=== PATIENT | male | born 1945 | race Two or more races ===

== ENCOUNTER 2023-01-30 22:46 | Inpatient (IN) | payer MEDICARE, OTHER ==
[~2023-01-30] VITALS: Ht 177.8 cm; Wt 56.2 kg
--- NOTE | 2023-01-30 23:45 | NUR ---
REJI 839 FROM HOME WITH CC OF GEN WEAKNESS X2 WEEKS. PT IS AAO X 2-3 WITH PERIODS OF CONFUSION, BREATHING UNLABORED. PT ATTACHED TO MONITOR AND PULSE OX. AWAITING MD MARCUM
[2023-01-31] MEDS ORDERED: IV NS 0.9% 500 ML BAG IV ONE
--- NOTE | 2023-01-31 00:10 | NUR ---
IV LINE STARTED AT RFA 20G, BLOOD DRAWN AND SENT TO LAB
--- NOTE | 2023-01-31 00:15 | NUR ---
URINE COLLECTED, SENT TO LAB
--- NOTE | 2023-01-31 00:16 | NUR ---
PT TAKEN TO CT VIA TEOFILO
--- NOTE | 2023-01-31 00:33 | NUR ---
PT IS AAO X 4, PER PT, HE WISHES TO BE FULL CODE. HE STATES HE HAS NO KNOWN ALLERGIES, CONFIRMED BY DAUGHTER AT BEDSIDE.
--- NOTE | 2023-01-31 00:34 | NUR ---
MRSA, AND COVID SWAB COLLECTED, SENT TO LAB
[2023-01-31 00:37] LABS: BASOPHILS % (AUTO) 0.2 % (0.0-2.0); HEMATOCRIT 32 % (39-51); HEMOGLOBIN 10.4 g/dL (13.5-17.5); LYMPHOCYTES # (AUTO) 0.7 K/uL (0.8-4.8); LYMPHOCYTES % (AUTO) 8.4 % (20.0-44.0); MEAN CORPUSCULAR HGB CONC 33 g/dl (31.0-36.0); MEAN CORPUSCULAR VOLUME 93 fL (80-96); MONOCYTES # (AUTO) 0.7 K/uL (0.1-1.30); NEUTROPHILS # (AUTO) 6.8 K/uL (1.8-8.9); NEUTROPHILS % (AUTO) 82.4 % (43.0-81.0); PLATELET COUNT (AUTO) 220 K/uL (150-450); RED BLOOD CELL COUNT(AUTO) 3.41 MIL/uL (4.5-6.0); WHITE BLOOD COUNT (AUTO) 8.2 K/uL (4.3-11.0)
[2023-01-31 00:42] LABS: CALCIUM, SERUM 9.1 mg/dL (8.5-10.1); CARBON DIOXIDE 31 mmol/L (21-32); CHLORIDE 99 mmol/L (98-107); CREATININE 0.8 mg/dL (0.6-1.3); GLUCOSE 109 mg/dL (74-106); POTASSIUM 4.1 mmol/L (3.5-5.1); SODIUM SERUM 134 mmol/L (136-145); UREA NITROGEN, BLOOD 25 mg/dL (7-18)
[2023-01-31 00:48] LABS: ALANINE AMINOTRANSFERASE 121 U/L (12-78); ALBUMIN 3.2 g/dL (3.4-5.0); ALKALINE PHOSPHATASE 97 U/L (46-116); ASPARTATE AMINOTRANSFERASE 139 U/L (15-37); BILIRUBIN,DIRECT 0.1 mg/dL (0.0-0.2); BILIRUBIN,TOTAL 0.3 mg/dL (0.2-1.0); TOTAL PROTEIN, SERUM 6.6 g/dL (6.4-8.2)
[2023-01-31 00:56] LABS: BILIRUBIN,URINE NEGATIVE (NEGATIVE); COLOR,URINE YELLOW (YELLOW); LEUKOCYTE ESTERASE ,URINE NEGATIVE (NEGATIVE); NITRITE, URINE NEGATIVE (NEGATIVE); PH,URINE 6.5 (5.0-8.0); PROTEIN,URINE NEGATIVE (NEGATIVE); UGLUCOSE NEGATIVE (NEGATIVE)
[2023-01-31 00:58] LABS: BACTERIA,URINE Rare /HPF (None Seen); RBC,URINE 0-2 /HPF (0-2); SQUAMOUS EPITHELIAL CELL,UR Few /HPF (None Seen); WBC,URINE 0-2 /HPF (0-3)
[2023-01-31] MEDS ORDERED: ACETAMINOPHEN 325 MG TABLET PO PRN (02:30)
[2023-01-31] MEDS ORDERED: ONDANSETRON HCL/PF 4 MG/2 ML VIAL IVP PRN (02:30)
[2023-01-31] MEDS ORDERED: MAG HYDROX/AL HYDROX/SIMETH 30 ML UDC PO PRN (02:30)
[2023-01-31] MEDS ORDERED: MAGNESIUM HYDROXIDE 30 ML UDC PO PRN (02:30)
[2023-01-31] MEDS ORDERED: IV NS 0.9% 1,000 ML IV SCH (02:30)
[2023-01-31] MEDS ORDERED: MORPHINE SULFATE INJ 2 MG/ML DISP.SYRIN IV PRN (02:30)
[2023-01-31] MEDS ORDERED: ENOXAPARIN SODIUM 40 MG/0.4 ML DISP.SYRIN SQ ONE (04:04)
[2023-01-31] MEDS: ENOXAPARIN SODIUM 40 MG/0.4 ML DISP.SYRIN SQ SCH ×2 (04:08→21:17)
--- NOTE | 2023-01-31 08:36 | NUR ---
REPORT GIVEN TO TAYA NASSAR
--- NOTE | 2023-01-31 09:08 | NUR ---
moved to inpatient room safely per acls protocol
[2023-01-31 09:30] VITALS: BP 155/86
[2023-01-31] MEDS: IV NS 0.9% 1,000 ML IV PRN (09:47)
--- NOTE | 2023-01-31 10:02 | NUR ---
RN NOTES PT IS CONFUSED, AGITATED, TRYING TO REMOVED AGAIN HIS IV ACCESS AND TRIED SEVERAL TIMES TO GET-OUT OF BED. PT IS HIGH RISK OF FALL. HOT PLATE PLY[employer]OD PRESS OPERATOR CHEYANNE LIU MADE AWARE WITH ORDER TO PLACE PT ON BILATERAL WRIST RESTRAINTS. PT'S DAUGHTER THIERRY INFORMED.
--- NOTE | 2023-01-31 10:15 | NUR ---
MS LEAD PHP DEVELOPER NOTES PT ADMITTED TO UNIT VIA GURNEY AT 0900 WITH DIAGNOSIS OF FTT. PT IS A/O X1. VERBALLY RESPONSIVE, RESTLESS, CONFUSED AND FORGETFUL. FOLLOWS SIMPLE COMMANDS. PT ORIENTED TO STAFF AND ROOM. V/S TAKEN AND RECORDED. PT ON ROOM, TOLERATING WELL, BREATHING EVEN AND UNLABORED. PHYSICAL ASSESSMENT DONE: PHOTOS OF SKIN ISSUES TAKEN AND FILED ON HIS CHART. IV ACCESS NOTED ON SOLO #20G INTACT AND PATENT, IVF OF NS @ 75ML/HR STARTED PER MD ORDER. LUNGS CLEAR ON AUSCULTATION. ABDOMEN SOFT, NON-TENDER WITH POSITIVE BOWEL SOUNDS PRESENT. ABLE TO MOVE ALL EXTREMITIES. FALL AND ALL SAFETY PRECAUTIONS IMPLEMENTED: HOB ELEVATED, BED IN LOWEST LOCKED POSITION, SIDE-RAILS UP X3, CALL LIGHT WITHIN REACH. WILL CONTINUE TO MONITOR PT.
[2023-01-31] MEDS ORDERED: LEVO75TA7 PO (10:33)
[2023-01-31] MEDS ORDERED: METO50TA16 PO (10:33)
[2023-01-31] MEDS ORDERED: FERR325T24 PO (10:33)
[2023-01-31] MEDS ORDERED: MULT-447 PO (10:33)
[2023-01-31] MEDS ORDERED: ATOR10TA PO (10:33)
[2023-01-31] MEDS ORDERED: SODI1TAB66 PO (10:33)
[2023-01-31] MEDS ORDERED: CALC1TAB30 PO (10:35)
--- NOTE | 2023-01-31 13:34 | NUR ---
RN NOTES PT'S DAUGHTER SHOWED PT'S COVID -19 VACCINATION CARD AND PT WAS VACCINATED X2 WITH MODERNA VACCINE: 1ST DOSE 01/04/21 AND 2ND DOSE 01/27/21.
[2023-01-31 16:00] VITALS: BP 149/75
[2023-01-31] MEDS: FERROUS SULFATE (325 MG) 325 MG/TAB TABLET PO SCH (16:57)
[2023-01-31] MEDS: METOPROLOL TARTRATE 50 MG TABLET PO SCH (16:59)
--- NOTE | 2023-01-31 18:48 | NUR ---
RN MS CLOSING NOTES RECEIVED PATIENT AWAKE IN BED, PT IS A/O X1. VERBALLY RESPONSIVE, RESTLESS, CONFUSED AND FORGETFUL. FOLLOWS SIMPLE COMMANDS. ON ROOM AIR, NO S/S OF RESPIRATORY DISTRESS. PT WITH BILATERAL SOFT WRISTS RESTRAINTS IN PLACE, SKIN AND CIRCULATION WNL. IV ACCESS NOTED ON SOLO #20G INTACT AND PATENT, IVF OF NS @ 75ML/HR. ABLE TO MOVE ALL EXTREMITIES. FALL AND SAFETY PRECAUTIONS IMPLEMENTED: HOB ELEVATED, BED IN LOWEST LOCKED POSITION, SIDE-RAILS UP X3, CALL LIGHT WITHIN REACH. WILL ENDORSE TO SHORT ORDER FRY COOK NURSE FOR ALVARO..
--- NOTE | 2023-01-31 19:35 | NUR ---
MS RN OPENING NOTES RECEIVED PATIENT AWAKE IN BED. PT IS A/O X1, CONFUSED. ON ROOM AIR, BREATHING EVEN AND UNLABORED, NO SIGNS OF DISTRESS OR SOB AT THIS TIME. PT WITH BILATERAL SOFT WRISTS RESTRAINTS IN PLACE, SKIN AND CIRCULATION WNL. IV ACCESS NOTED ON SOLO #20G INTACT AND PATENT, IVF OF NS @ 75ML/HR. WILL MAINTAIN SAFETY MEASURES WITH BED IN LOWEST LOCKED POSITION. SIDE-RAILS UP X 3. CALL LIGHT WITHIN REACH. WILL CONTINUE THE PLAN OF CARE AND WILL CARRY OUT ACTIVE MD ORDERS.
[2023-01-31 20:00] VITALS: BP 149/108
[2023-02-01] MEDS: IV NS 0.9% 1,000 ML IV PRN ×2 (00:51→14:33)
[2023-02-01 05:55] LABS: BASOPHILS % (AUTO) 0.3 % (0.0-2.0); HEMATOCRIT 30 % (39-51); HEMOGLOBIN 9.8 g/dL (13.5-17.5); LYMPHOCYTES # (AUTO) 0.3 K/uL (0.8-4.8); LYMPHOCYTES % (AUTO) 2.7 % (20.0-44.0); MEAN CORPUSCULAR HGB CONC 33 g/dl (31.0-36.0); MEAN CORPUSCULAR VOLUME 93 fL (80-96); MONOCYTES # (AUTO) 0.7 K/uL (0.1-1.30); MONOCYTES % (AUTO) 6.2 % (2.0-12.0); NEUTROPHILS % (AUTO) 90.8 % (43.0-81.0); PLATELET COUNT (AUTO) 202 K/uL (150-450); RED BLOOD CELL COUNT(AUTO) 3.21 MIL/uL (4.5-6.0)
[2023-02-01 06:17] LABS: ALBUMIN 3.1 g/dL (3.4-5.0); BILIRUBIN,TOTAL 0.9 mg/dL (0.2-1.0); CALCIUM, SERUM 8.7 mg/dL (8.5-10.1); CREATININE 0.7 mg/dL (0.6-1.3); PHOSPHORUS 3.2 mg/dL (2.5-4.9); POTASSIUM 4.3 mmol/L (3.5-5.1); TOTAL PROTEIN, SERUM 6.3 g/dL (6.4-8.2)
[2023-02-01 06:28] LABS: THYROID STIMULATING HORMONE 5.414 uIU/mL (0.358-3.74)
--- NOTE | 2023-02-01 07:04 | NUR ---
MS RN CLOSING NOTES PATIENT AWAKE IN BED. PT IS A/O X1, CONFUSED. ON ROOM AIR, BREATHING EVEN AND UNLABORED, NO SIGNS OF DISTRESS OR SOB AT THIS TIME. PT WITH BILATERAL SOFT WRISTS RESTRAINTS IN PLACE, SKIN AND CIRCULATION WNL. IV ACCESS NOTED ON SOLO #20G INTACT AND PATENT, IVF OF NS @ 75ML/HR. SAFETY MEASURES MAINTAINED WITH BED IN LOWEST LOCKED POSITION. SIDE-RAILS UP X 3. CALL LIGHT WITHIN REACH. WILL ENDORSE TO THE NEXT SHIFT.
[2023-02-01] MEDS ORDERED: LEVOTHYROXINE SODIUM 75 MCG TABLET PO SCH (07:30)
--- NOTE | 2023-02-01 08:17 | NUR ---
RN OPENING NOTE RECEIVED PATIENT IN BED AO x 1 CONFUSED, ABLE TO RESPONDS PHYSICAL STIMULI. RESPIRATORY EVEN AND UNLABORED IN ROOM AIR. IN NO ACUTE RESPIRATORY DISTRESS OBSERVED. SKIN IS WARM TO TOUCH, KEEP CLEAN/DRY. KEPT ELEVATED HOB FOR ASPIRATION PRECAUTION/ENSURE AIRWAY, ALSO LOWEST BED POSITIONED. BED ALARM IS ON AT ALL THE TIME FOR SAFETY. CALL LIGHT WITHIN REACH, WILL CONTINUE TO MONITOR.
[2023-02-01 08:31] VITALS: BP 142/87
[2023-02-01] MEDS: FERROUS SULFATE (325 MG) 325 MG/TAB TABLET PO SCH ×2 (09:07→17:14)
[2023-02-01] MEDS: CALCIUM CARB 600MG /VIT D 1 EACH TABLET PO SCH (09:07)
[2023-02-01] MEDS: ATORVASTATIN 10 MG TABLET PO SCH (09:07)
[2023-02-01] MEDS: METOPROLOL TARTRATE 50 MG TABLET PO SCH ×2 (09:08→17:14)
[2023-02-01] MEDS: MULTIVIT W/MINERALS 1 TAB TABLET PO SCH (09:09)
--- NOTE | 2023-02-01 13:45 | NUR ---
THE PATIENT CONFUSED THAN YESTERDAY, NEW ORDER CT HEAD WO CONTRAST. NOTED AND CARRY OUT.
[2023-02-01 16:11] VITALS: BP 110/61
[2023-02-01] MEDS: ENSURE ENLIVE 237 ML LIQUID (VANILLA) PO SCH (17:13)
--- NOTE | 2023-02-01 18:41 | NUR ---
RN CLOSING NOTE PATIENT RESTING IN BED. IN NO ACUTE DISTRESS OBSERVED. RESPIRATORY EVEN AND UNLABORED ON OXYGEN AT 2Ls VIA NC, NO SOB OR DESATURATION NOTED. SKIN IS WARM TO TOUCH KEEP CLEAN/DRY. KEPT ELEVATED HOB FOR ENSURE AIRWAY/ASPIRATION PRECAUTION, AND LOWEST BED POSITION. BED ALARM IS ON AT ALL THE TIME FOR SAFETY. CALL LIGHT WITHIN REACH, WILL ENDORSE STEEL LAYOUT WORKER.
--- NOTE | 2023-02-01 19:23 | NUR ---
RN OPENING NOTE RECEIVED PATIENT IN BED AAOX1 CONFUSED,RAUL WELL ON RM AIR SAT 98%,NO SOB/DISTRESS NOTED,IV ACCESS ON SOLO 20G WITH NS 75ML/HR INFUSING WELL,RESTRAINED IN PLACE WITH GOOD CIRCULATION,SAFETY MEASURE IN PLACE,CALL LIGHT WITHIN REACH,WILL CONTINUE TO MONITOR.
[2023-02-01 20:00] VITALS: BP 128/72
[2023-02-01] MEDS: ENOXAPARIN SODIUM 40 MG/0.4 ML DISP.SYRIN SQ SCH (21:05)
[2023-02-02] MEDS: IV NS 0.9% 1,000 ML IV PRN (04:11)
[2023-02-02 05:55] LABS: BASOPHILS % (AUTO) 0.2 % (0.0-2.0); HEMATOCRIT 30 % (39-51); LYMPHOCYTES # (AUTO) 0.8 K/uL (0.8-4.8); LYMPHOCYTES % (AUTO) 7.4 % (20.0-44.0); MEAN CORPUSCULAR HGB CONC 33 g/dl (31.0-36.0); MEAN CORPUSCULAR VOLUME 93 fL (80-96); MONOCYTES % (AUTO) 9.1 % (2.0-12.0); NEUTROPHILS # (AUTO) 9.1 K/uL (1.8-8.9); NEUTROPHILS % (AUTO) 83.3 % (43.0-81.0); PLATELET COUNT (AUTO) 197 K/uL (150-450); WHITE BLOOD COUNT (AUTO) 10.9 K/uL (4.3-11.0)
--- NOTE | 2023-02-02 06:09 | NUR ---
RN CLOSING NOTE; PATIENT IN BED WITH EYES CLOSED BUT EASY TO AROUSED,AOX1 CONFUSED,RAUL WELL ON RM AIR SAT 97%,NO SOB/DISTRESS NOTED,NO SIGN OF PAIN/DISCOMFORT DURING SHIFT,DUE MEDS GIVEN ORDER,ALL NEEDS ATTENDED,IV ACCESS ON SOLO 20G WITH NS 75ML/HR INFUSING WELL,RESTRAINED IN PLACE RELEASED Q2HRS WITH GOOD CIRCULATION,NO REDNESS OR SWOLLEN NOTED.SAFETY MEASURE IN PLACE,CALL LIGHT WITHIN REACH,WILL ENDORSED TO NEXT SHIFT.
[2023-02-02 06:21] LABS: CALCIUM, SERUM 8.6 mg/dL (8.5-10.1); CREATININE 0.7 mg/dL (0.6-1.3); POTASSIUM 3.9 mmol/L (3.5-5.1)
[2023-02-02 07:00] VITALS: BP_SYST 127; BP_SYST 141; BP_DIAS 55; BP_DIAS 90
--- NOTE | 2023-02-02 07:26 | NUR ---
MS RN OPENING NOTE Patient in bed, asleep. A/O x 1. On room air, breathing evenly and unlabored. No SOB or s/s of distress noted. IV access on SOLO #20 infusing NS at 75 ml/hr. Bilateral soft wrist restraint noted. Safety precautions in place: bed in low, locked position; siderails up ; call light within reach. Will continue to monitor.
--- NOTE | 2023-02-02 10:04 | NUR ---
RN NOTE Been trying to wake patient for medication, patient is snoring but is not arousable to name, touch, or pain. blood glucose checked, 76. VS as follows: BP 129/74, RI 89, SPO2 97 % on room air, RR 20 and no SOB or s/s of distress noted. Patient is on IV fluids, NS at 75 ml/hr. Notified Anna Lilly NP of assessment and she ordered to change fluid to D5NS at 100ml/hr, and ordered for neuro consult. Will continue to monitor patient.
[2023-02-02] MEDS: LEVOTHYROXINE SODIUM 75 MCG TABLET PO SCH (10:12)
[2023-02-02] MEDS: CALCIUM CARB 600MG /VIT D 1 EACH TABLET PO SCH (10:12)
[2023-02-02] MEDS: ENSURE ENLIVE 237 ML LIQUID (VANILLA) PO SCH ×2 (10:12→18:10)
[2023-02-02] MEDS: ATORVASTATIN 10 MG TABLET PO SCH (10:13)
[2023-02-02] MEDS: FERROUS SULFATE (325 MG) 325 MG/TAB TABLET PO SCH ×2 (10:13→18:11)
[2023-02-02] MEDS: METOPROLOL TARTRATE 50 MG TABLET PO SCH ×2 (10:13→18:11)
[2023-02-02] MEDS: MULTIVIT W/MINERALS 1 TAB TABLET PO SCH (10:13)
[2023-02-02] MEDS: IV D5/ 0.9% NACL 1,000 ML IV PRN ×2 (10:52→21:55)
--- NOTE | 2023-02-02 11:39 | NUR ---
WOUND CARE CONSULT: PT PRESENTS WITH AREAS OF SKIN DISCOLORATION AND DEEP TISSUE INJURY TO RT UPPER BACK, PRESENT ON ADMISSION. RECOMMENDATIONS MADE FOR SKIN PROTECTION. DISCUSSED WITH NURSING STAFF. PT IS INCONTINENT. IN AGREEMENT WITH PLAN OF CARE. Addendum: 02/02/23 at 1140 by MISSY GIFFORD WNDNU Amended: Links added. Addendum: 02/02/23 at 1140 by MISSY GIFFORD WNDNU PT IS VERY THIN AND BONY. DIETARY CONSULT IN PLACE.
--- NOTE | 2023-02-02 14:45 | NUR ---
RN NOTE Patient is awake now. A/O x 1, confused. Patient kept looking for his . Patient complained of pain on his left thigh. Anna Lilly NP and Elisa CHAUDHRY notified of patient mentation. Anna CHAUDHRY ordered Xray of left femur. Will continue to monitor.
--- NOTE | 2023-02-02 16:19 | NUR ---
RN NOTE Nursing swallow eval done at bedside, patient able to tolerated pureed food.
[2023-02-02 16:24] VITALS: BP 141/97
--- NOTE | 2023-02-02 18:48 | NUR ---
MS RN CLOSING NOTE Patient in bed, resting. A/O x 1, able to make needs known. Stable on room air, breathing evenly and unlabored. No SOB or s/s of distress noted. IV access on SOOL #20 infusing D5NS at 100 ml/hr. All needs attended to. Due meds given. Condom catheter placed earlier, draining to a yellow colored urine. Safety precautions in place: bed in low, locked position; siderails up ; call light within reach. Will endorse to spa supervisor nurse for ALVARO.
--- NOTE | 2023-02-02 19:23 | NUR ---
RN OPENING NOTE RECEIVED PATIENT IN BED AAOX1 CONFUSED,RAUL WELL ON RM AIR SAT 97%,NO SOB/DISTRESS NOTED,IV ACCESS ON SOLO 20G WITH D5 NS 100ML/HR INFUSING WELL,RESTRAINED IN PLACE WITH GOOD CIRCULATION,SAFETY MEASURE IN PLACE,CALL LIGHT WITHIN REACH,WILL CONTINUE TO MONITOR.
[2023-02-02 20:00] VITALS: BP 145/76
[2023-02-02] MEDS: ENOXAPARIN SODIUM 40 MG/0.4 ML DISP.SYRIN SQ SCH (21:20)
--- NOTE | 2023-02-03 06:14 | NUR ---
N CLOSING NOTE; PATIENT IN BED WITH EYES CLOSED BUT EASY TO AROUSED,AOX1 CONFUSED,RAUL WELL ON RM AIR SAT 97%,NO SOB/DISTRESS NOTED,NO SIGN OF PAIN/DISCOMFORT DURING SHIFT,DUE MEDS GIVEN ORDER,ALL NEEDS ATTENDED,IV ACCESS ON SOLO 20G WITH D5 NS 100ML/HR INFUSING WELL,RESTRAINED IN PLACE RELEASED Q2HRS WITH GOOD CIRCULATION,NO REDNESS OR SWOLLEN NOTED.SAFETY MEASURE IN PLACE,CALL LIGHT WITHIN REACH,WILL ENDORSED TO NEXT SHIFT.
[2023-02-03 06:25] LABS: BASOPHILS % (AUTO) 0.1 % (0.0-2.0); EOSINOPHILS % (AUTO) 0.2 % (0.0-6.0); HEMATOCRIT 28 % (39-51); HEMOGLOBIN 9.2 g/dL (13.5-17.5); LYMPHOCYTES # (AUTO) 0.4 K/uL (0.8-4.8); LYMPHOCYTES % (AUTO) 4.5 % (20.0-44.0); MEAN CORPUSCULAR HGB CONC 33 g/dl (31.0-36.0); MEAN CORPUSCULAR VOLUME 93 fL (80-96); MONOCYTES # (AUTO) 0.7 K/uL (0.1-1.30); MONOCYTES % (AUTO) 7.8 % (2.0-12.0); NEUTROPHILS # (AUTO) 7.3 K/uL (1.8-8.9); NEUTROPHILS % (AUTO) 87.4 % (43.0-81.0); PLATELET COUNT (AUTO) 212 K/uL (150-450); RED BLOOD CELL COUNT(AUTO) 3.03 MIL/uL (4.5-6.0); WHITE BLOOD COUNT (AUTO) 8.3 K/uL (4.3-11.0)
[2023-02-03 07:03] LABS: ALBUMIN 2.4 g/dL (3.4-5.0); BILIRUBIN,DIRECT 0.2 mg/dL (0.0-0.2); BILIRUBIN,TOTAL 0.4 mg/dL (0.2-1.0); CALCIUM, SERUM 8.2 mg/dL (8.5-10.1); CREATININE 0.7 mg/dL (0.6-1.3); POTASSIUM 3.7 mmol/L (3.5-5.1); TOTAL PROTEIN, SERUM 5.6 g/dL (6.4-8.2)
--- NOTE | 2023-02-03 07:45 | NUR ---
RN OPENING NOTE RECEIVED PATIENT IN BED ASLEEP, EASILY ROUSED, AOX1 CONFUSED. ON RA WITH NO S/S OF SOB/DISTRESS NOTED, DENIES PAIN AT THIS TIME. IV ACCESS AT SOLO #20 RUNNING D5 NS 100ML/HR INFUSING WELL. BILATERAL SOFT WRIST RESTRAINTS NOTED, CHECKED SKIN, NO ISSUES NOTED WILL CONT TO ASSESS PER UNIT PROTOCOL. ALL SAFETY MEASURES IN PLACE, CALL LIGHT WITHIN REACH, WILL CONTINUE WITH PLAN OF CARE DURING SHIFT.
[2023-02-03 08:00] VITALS: BP 118/69
[2023-02-03] MEDS: MULTIVIT W/MINERALS 1 TAB TABLET PO SCH (09:11)
[2023-02-03] MEDS: FERROUS SULFATE (325 MG) 325 MG/TAB TABLET PO SCH ×2 (09:11→17:07)
[2023-02-03] MEDS: CALCIUM CARB 600MG /VIT D 1 EACH TABLET PO SCH (09:11)
[2023-02-03] MEDS: LEVOTHYROXINE SODIUM 75 MCG TABLET PO SCH (09:11)
[2023-02-03] MEDS: METOPROLOL TARTRATE 50 MG TABLET PO SCH ×2 (09:13→17:07)
[2023-02-03] MEDS: ATORVASTATIN 10 MG TABLET PO SCH (09:13)
[2023-02-03] MEDS: ENSURE ENLIVE 237 ML LIQUID (VANILLA) PO SCH ×2 (09:14→18:20)
[2023-02-03] MEDS: IV D5/ 0.9% NACL 1,000 ML IV PRN (09:42)
[2023-02-03 11:07] LABS: T3 TOTAL 39 ng/dL (71-180)
[2023-02-03 16:00] VITALS: BP 117/66
[2023-02-03 17:07] VITALS: BP 117/66
--- NOTE | 2023-02-03 18:45 | NUR ---
RN DC NOTES: PT IS STABLE FOR DC. REPORT GIVEN BY PHONE TO [facility], [facility]. VITALS WNL, ON RA WITH NO S/S OF DISTRESS. DISCUSSED DC INSTRUCTIONS AND BELONGINGS LIST WITH FAMILY, SIGNED DOCUMENTS. SKIN ISSUES PHOTOGRAPHED AND ATTACHED TO CHART. IV ACCESS AND ID BAND REMOVED. GAVE REPORT TO EMT, UNIT# [id number]. LEFT UNIT VIA [facility] IS TRANSPORTATION
== END 2023-02-03 18:45 | DRG 640 ==
LOC: ER 22:54 → TRANSITION 01-31 06:53 → MED 01-31 08:05
PROVIDERS: ADMIT Nurse Practitioner Acute Care
DX: R62.7 Adult failure to thrive (principal); G93.41 Metabolic encephalopathy; E44.0 Moderate protein-calorie malnutrition; Z68.1 Body mass index [BMI] 19.9 or less, adult; E86.0 Dehydration; I10 Essential (primary) hypertension; R29.6 Repeated falls; E78.5 Hyperlipidemia, unspecified; R79.89 Other specified abnormal findings of blood chemistry; E88.09 Other disorders of plasma-protein metabolism, not elsewhere classified; R74.01 Elevation of levels of liver transaminase levels; F03.90 Unspecified dementia, unspecified severity, without behavioral disturbance, psychotic disturbance, mood disturbance, and anxiety; Z20.822 Contact with and (suspected) exposure to COVID-19; D64.9 Anemia, unspecified; Z79.899 Other long term (current) drug therapy; Z86.73 Personal history of transient ischemic attack (TIA), and cerebral infarction without residual deficits
CPT/HCPCS: 36415; 36600; 70450-TC; 70551-TC; 71045-TC; 73552; 80048-TC; 80053-TC; 80076-TC; 81001; 82140-TC; 82607-TC; 82803-TC; 82962-TC; 83735-TC; 84100-TC; 84439-TC; 84443-TC; 84480; 84484-TC; 85025-TC; 85730-TC; 87081-TC; 92526; 92611-TC; 94799-TC; 97112-TC; 97530-TC; A4223; A4349; C9803; G0378; J1650; J2270; J2405; J7030; J7042